=== PATIENT | male | born 1980 | race Caucasian/White ===

== ENCOUNTER 2018-12-14 13:58 | Emergency (ER) | payer MEDICAID ==
[~2018-12-14] VITALS: Ht 177.8 cm; Wt 73.9 kg
[2018-12-14 14:12] VITALS: BP 154/99
--- NOTE | 2018-12-14 14:13 | NUR ---
pt arrived to ed c/o dizziness and posterior alvarez x this am. PT RATES PAIN LEVLE 5/10 AND DESCRIBES IT PRESSURE. PT DENIES ANY BLURRY VISION. PT STATES, "I GOT DIZZY WHEN I WENT DOWN TO GRAB MY SANDALS AND WHEN I GOT BACK UP I GOT DIZZY AND HAD TO SIT ON THE SIDE OF THE BED FOR 5MINS." PERLLA 3MM. A & O X 4. DENIES ANY HEAD INJURY OR TRUAMA. ARM STRENGTH EUQAL BILATERALLY. FACIAL SYMMERTRY EQUAL. VSS. PATIENT POSITIONED FOR COMFORT; HOB ELEVATED; BEDRAILS UP X1; BED DOWN. ER MD MADE AWARE OF PT STATUS. ALLERGIES: SULFA. DENIES PMH.
--- NOTE | 2018-12-14 14:13 | NUR ---
MD MCKENNA AT BEDSIDE TO [facility] PT.
--- NOTE | 2018-12-14 14:27 | NUR ---
PT AMBULATED TO BED 01.
[2018-12-14] MEDS ORDERED: LISINOPRIL 20 MG TAB PO ONE (14:40)
[2018-12-14] MEDS ORDERED: MECLIZINE 25 MG TAB PO ONE (14:40)
[2018-12-14 15:40] VITALS: BP 126/93
--- NOTE | 2018-12-14 15:40 | NUR ---
DISCHARGE TEACHING DONE BY DR. MCKENNA. PT WAS ADVISED TO TAKE MEDICATION PRESCRIBED AND TO FOLLOW UP WITH PMD.
== END 2018-12-14 15:40 | disposition home or self-care (01) ==
LOC: MED 13:58
DX: R42 Dizziness and giddiness (principal); I10 Essential (primary) hypertension; Z88.2 Allergy status to sulfonamides; F90.9 Attention-deficit hyperactivity disorder, unspecified type
CPT/HCPCS: 99283; J8597

== ENCOUNTER 2022-03-02 08:22 | Day surgery (SDC) | payer OTHER ==
[~2022-03-02] VITALS: Ht 175.3 cm; Wt 80.7 kg
[2022-03-02] MEDS ORDERED: MIDAZOLAM 5 MG/5 ML VIAL ONE (10:13)
[2022-03-02] MEDS ORDERED: fentaNYL citrate 0.05 MG/ML VIAL ONE (10:13)
[2022-03-02] MEDS ORDERED: MIDAZOLAM 5 MG/5 ML VIAL IV ONE (11:05)
== END 2022-03-02 12:05 | disposition home or self-care (01) ==
LOC: MDS 08:22 → MMU 08:41 → MDS 12:05
PROVIDERS: ATTEND Internal Medicine Gastroenterology
DX: K21.00 Gastro-esophageal reflux disease with esophagitis, without bleeding (principal); K22.70 Barrett's esophagus without dysplasia; K44.9 Diaphragmatic hernia without obstruction or gangrene; F41.9 Anxiety disorder, unspecified; F32.A Depression, unspecified; Z87.891 Personal history of nicotine dependence
CPT/HCPCS: 36415; 43239; 86677; 87426; J2250; J3010